=== PATIENT | female | born 1990 | race Two or more races ===

== ENCOUNTER 2024-12-28 13:54 | Outpatient (AMB) | payer OTHER, SELFPAY ==
--- NOTE | 2024-12-28 13:54 | PD.RESCLINIC ---
Vital Signs 12/28/24 14:02 Height 1.6 m Height Method Stated Weight 77.281 kg Weight Measurement Method Standing Scale BMI 30.2 BP 137/83 H Blood Pressure Source Automatic Cuff Blood Pressure Location Left Upper Arm Position Sitting Respiration 18 Pulse 82 Pulse Source Monitor Temp 97.8 F Temp Source Temporal Artery Scan Pulse Oximetry (%) 98 Oxygen Delivery Method Room Air Allergies/Meds Allergies & Medications Allergies No Known Allergies Allergy (Verified 12/28/24 14:03) Medication Reconciliation valacyclovir 1 gram tablet 1,000 mg PO Q8H zoster 7 days #21 tabs 12/28/24 [Rx] MA Intake Visit Data Collection New Patient or Established: Established Patient (seen at [facility] within 3 years) Seen by Clinical Staff ONLY (RN/MA): No Pain Present Currently: No Pain scale:: 0 Pain Scale Used: Garcia-Arellano/Numerical Access Database Developer Required: No PCP or OBGYN visit in last 3 months: No Hx Now: No Do You Feel Safe at Home: Yes Authorities Contacted: N/A Smoking Status Smoking Status: Never smoker Immunization / Flu Flu Vaccine in the Last 12 Months: No Flu Vaccine Exclusion Criteria: No Exclusion Criteria Past Medical History Social History SMOKING STATUS: Smoking status: Never smoker Patient Portal Questionaires Social History Tobacco History Smoking Status: Never smoker Domestic Abuse History Do You Feel Safe at Home: Yes Review of Systems Report any current symptoms Only answer those that you have currently: Past Medical History Past Medical History Have you ever been diagnosed with any of the following: History of Present Illness HPI Narrative 34-year-old female, G1, P1, currently breast-feeding, presents with 2-day history of painful vesicular-like regions at first appeared on the upper portion of the breast a day ago. [place] neuropathic pain. Similar lesions now on posterior shoulder. History of prior chickenpox as a child. No other sick contacts. Patient has been under more stress lately, some sleep deprivation, working covering multiple jobs. Review of Systems Review of Systems Narrative Review of Systems: Denies fever, chills, cough, shortness of breath, chest pain, palpitations, nausea, vomiting, diarrhea. Positive for rash and neuropathic type pain as per HPI. Objective/Exam Skin Skin exam: Present rash (Small grouped vesicular-like lesions on superior portion of right breast and posterior right shoulder and a T2/T3 distribution. Some mild erythema. No drainage. No bhavana blistering.) Assessment & Plan Diagnosis / Problem List (1) Zoster: Status: Acute Assessment & Plan: Lesions most consistent with varicella-zoster and T2/T3 distribution right sided. No drainage. Plan: Valacyclovir 1 g 3 times daily x 7 days. Patient will use nonsteroidal anti-inflammatory or Tylenol for pain as needed. Patient advised to not have come in contact with any of the lesions. Tegaderm given for patient to cover lesions on the breast so that she may pump her from that breast and continue to use to breastmilk. Patient may directly breast-feed on the left side. [employer] website reviewed, no problem with breast-feeding with use of valacyclovir. Physician Billing New Patient New Patient: E/M Level 3-CPT 58166 Office Procedures [facility] Level of Care Nursing/Assessment Patient Status: Established Patient Nursing Assessment/Reassessment: Medication Reconciliation, Update PMH in EMR and Vital Signs Coordination of Care: Complex Care and Chronic Disease 1-5, Consent,records obtained, informed consent, Education Simp Pt/Fam, Lab and Imaging orders and Staff clarify orders Established Patient Charge Established Patient Point Assignment: 100 Established Patient Point Charge: EP Level 3 (80-115)
[2024-12-28 14:02] VITALS: BP 137/83; PULSE 82; RESP 18; TEMP 36.6; O2SAT 98; BMI 30.2
== END 2024-12-28 14:52 | disposition home or self-care (01) ==
LOC: HODAHC 13:54
PROVIDERS: PCP Internal Medicine; Referring Provider Internal Medicine; Supervising Provider Student in an Organized Health Care Education/Training Program; Visit Provider Student in an Organized Health Care Education/Training Program
DX: B02.9 Zoster without complications (principal)
CPT/HCPCS: 99213; G0463